=== PATIENT | male | born 2000 | race Two or more races ===

== ENCOUNTER 2019-04-30 17:51 | Emergency (ER) | payer MEDICAID, OTHER ==
[~2019-04-30] VITALS: Ht 177.8 cm; Wt 90.0 kg
[2019-04-30 20:30] VITALS: BP 121/70
== END 2019-04-30 21:46 | disposition home or self-care (01) ==
LOC: ER 17:51
DX: H66.91 Otitis media, unspecified, right ear (principal)
CPT/HCPCS: 99283

== ENCOUNTER 2019-10-28 23:12 | Emergency (ER) | payer MEDICAID ==
[~2019-10-28] VITALS: Ht 175.3 cm; Wt 97.0 kg
[2019-10-29 02:31] VITALS: BP 140/88
== END 2019-10-29 03:42 | disposition left against medical advice (07) ==
LOC: ER 23:12
DX: Z53.21 Procedure and treatment not carried out due to patient leaving prior to being seen by health care provider (principal)

== ENCOUNTER 2019-11-10 20:34 | Emergency (ER) | payer BC, MEDICAID ==
[~2019-11-10] VITALS: Ht 177.8 cm; Wt 104.0 kg
[2019-11-10] MEDS ORDERED: SODIUM CHLORIDE 0.9% 1,000 ML IV ONE (21:14)
[2019-11-10] MEDS ORDERED: ONDANSETRON HCL 4MG/2ML INJ IV STA (21:14)
[2019-11-10] MEDS ORDERED: LORAZEPAM 2MG/ML CPJ IV ONE (21:15)
[2019-11-10] MEDS ORDERED: FAMOTIDINE 20MG/2ML VIAL IV ONE (21:15)
[2019-11-10] MEDS ORDERED: MAGNESIUM/ALUMINUM HYDROXIDE/SIMETHICONE 30ML UDC PO ONE (21:15)
[2019-11-10 21:42] LABS: BASOPHILS % 0.7 % (0.0-2.0); EOSINOPHILS % 0.4 % (0.0-5.0); HEMATOCRIT. 45.6 % (42.0-52.0); HEMOGLOBIN. 15.6 g/dL (14.0-18.0); LYMPHOCYTES % 18.7 % (20.0-50.0); MEAN CORPUSCULAR HEMOGLOBIN 27.2 pg (28.0-32.0); MEAN CORPUSCULAR VOLUME 79.4 fL (80.0-94.0); MEAN PLATELET VOLUME 8.9 fl (7.4-10.4); MONOCYTES % 8.1 % (2.0-8.0); NEUTROPHILS % 72.1 % (40.0-76.0); PLATELET 278 x1000/uL (130-400); RED BLOOD CELL COUNT 5.74 mill/uL (4.7-6.1); RED CELL DISTRIBUTION WIDTH 13.7 % (11.6-14.6)
[2019-11-10 21:43] LABS: CHLORIDE 105 mEq/L (98-107)
[2019-11-10 21:47] LABS: ETHANOL BLOOD < 10 mg/dL
[2019-11-10 22:34] LABS: CLARITY URINE CLEAR (CLEAR); COLOR URINE YELLOW (YELLOW); KETONES URINE 2+ (NEGATIVE); LEUKOCYTE ESTERASE URINE NEGATIVE (NEGATIVE); NITRITE URINE NEGATIVE (NEGATIVE); OCCULT BLOOD URINE 1+ (NEGATIVE); PROTEIN URINE TRACE (NEGATIVE); SPECIFIC GRAVITY URINE 1.021 (1.005-1.030); UROBILINOGEN URINE 0.2 E.U./dL (0.2-1.0)
[2019-11-10 22:44] LABS: *BARBITURATES SCREEN URINE NEGATIVE (NEGATIVE); *BENZODIAZEPINES SCREEN URINE NEGATIVE (NEGATIVE); *COCAINE SCREEN URINE NEGATIVE (NEGATIVE)
[2019-11-10 22:45] LABS: *AMPHETAMINES SCREEN URINE NEGATIVE (NEGATIVE); CANNABINOID URINE SCREEN PRESUMTIVE POSITIVE (NEGATIVE); METHADONE URINE SCREEN NEGATIVE (NEGATIVE); OPIATES URINE SCREEN NEGATIVE (NEGATIVE); PHENCYCLIDINE URINE SCREEN NEGATIVE (NEGATIVE)
[2019-11-11 00:03] VITALS: BP 111/63
== END 2019-11-11 00:04 | disposition home or self-care (01) ==
LOC: ER 20:34
DX: K29.70 Gastritis, unspecified, without bleeding (principal); R11.10 Vomiting, unspecified; E86.0 Dehydration; R74.8 Abnormal levels of other serum enzymes; F12.10 Cannabis abuse, uncomplicated
CPT/HCPCS: 36415; 71045; 80053; 80305; 80320; 81003; 83690; 84484; 85025; 96361; 96374; 96375; 99284; J2060; J2405; J3490; J7030; G0480

== ENCOUNTER 2019-11-13 20:16 | Emergency (ER) | payer BC, MEDICAID ==
[~2019-11-13] VITALS: Ht 172.7 cm; Wt 104.0 kg
[2019-11-13 22:33] VITALS: BP 150/88
== END 2019-11-14 00:37 | disposition left against medical advice (07) ==
LOC: ER 20:16
DX: Z53.21 Procedure and treatment not carried out due to patient leaving prior to being seen by health care provider (principal)

== ENCOUNTER 2019-11-14 02:49 | Emergency (ER) | payer MEDICAID ==
[~2019-11-14] VITALS: Ht 180.3 cm; Wt 104.0 kg
[2019-11-14] MEDS ORDERED: LORAZEPAM 1MG TABLET PO ONE (03:45)
[2019-11-14 04:16] VITALS: BP 130/65
== END 2019-11-14 04:19 | disposition home or self-care (01) ==
LOC: ER 04:18
DX: F16.180 Hallucinogen abuse with hallucinogen-induced anxiety disorder (principal)
CPT/HCPCS: 99283

== ENCOUNTER 2019-11-15 04:17 | Emergency (ER) | payer MEDICAID ==
[~2019-11-15] VITALS: Ht 177.8 cm; Wt 104.0 kg
[2019-11-15 04:51] VITALS: BP 156/93
== END 2019-11-15 06:38 | disposition home or self-care (01) ==
LOC: ER 04:17
DX: F16.180 Hallucinogen abuse with hallucinogen-induced anxiety disorder (principal); R00.2 Palpitations; I10 Essential (primary) hypertension
CPT/HCPCS: 99283

== ENCOUNTER 2019-11-17 05:33 | Emergency (ER) | payer MEDICAID ==
[~2019-11-17] VITALS: Ht 180.3 cm; Wt 100.0 kg
[2019-11-17 06:49] VITALS: BP 138/92
== END 2019-11-17 06:49 | disposition home or self-care (01) ==
LOC: ER 05:33
DX: F41.8 Other specified anxiety disorders (principal); F32.9 Major depressive disorder, single episode, unspecified
CPT/HCPCS: 99283

== ENCOUNTER 2020-11-02 16:47 | Emergency (ER) | payer MEDICAID ==
[~2020-11-02] VITALS: Ht 180.3 cm; Wt 100.0 kg
[2020-11-02] MEDS ORDERED: KETOROLAC 60MG/2ML VIAL IM ONE (17:30)
[2020-11-02] MEDS ORDERED: TRAMADOL 50MG TABLET PO ONE (17:30)
[2020-11-02 18:39] VITALS: BP 143/93
== END 2020-11-02 18:44 | disposition home or self-care (01) ==
LOC: ER 16:50
DX: T24.212A Burn of second degree of left thigh, initial encounter (principal); T31.0 Burns involving less than 10% of body surface; X08.8XXA Exposure to other specified smoke, fire and flames, initial encounter; Y93.89 Activity, other specified; Y92.89 Other specified places as the place of occurrence of the external cause; Y99.8 Other external cause status; Z98.890 Other specified postprocedural states
CPT/HCPCS: 16020; 96372; 99284; J1885

== ENCOUNTER 2025-02-08 18:37 | Emergency (ER) | payer OTHER ==
[~2025-02-08] VITALS: Ht 177.8 cm; Wt 127.0 kg
[~2025-02-08 18:37] MED LIST: ACET-2708 MT; NAPR-1129 MT
[2025-02-08 18:46] VITALS: O2SAT 98
[2025-02-08 18:49] VITALS: BP 150/95; PULSE 98; RESP 16; TEMP 36.6; O2SAT 100
[2025-02-08 19:34] LABS: BASOPHILS % 0.7 % (0.0-2.0); EOSINOPHILS % 2.1 % (0.0-5.0); HEMATOCRIT. 45.1 % (42.0-52.0); HEMOGLOBIN. 14.9 g/dL (14.0-18.0); LYMPHOCYTES % 25.7 % (20.0-50.0); MEAN CORPUSCULAR HEMOGLOBIN 26.7 pg (28.0-32.0); MEAN CORPUSCULAR VOLUME 80.8 fL (80.0-94.0); MEAN PLATELET VOLUME 9.3 fl (7.4-10.4); MONOCYTES % 8.4 % (2.0-8.0); NEUTROPHILS % 63.1 % (40.0-76.0); PLATELET 280 x1000/uL (130-400); RED BLOOD CELL COUNT 5.59 mill/uL (4.7-6.1); RED CELL DISTRIBUTION WIDTH 14.1 % (11.6-14.6)
[2025-02-08 19:41] LABS: CHLORIDE 104 mEq/L (98-107); POTASSIUM 3.6 mEq/L (3.5-5.1); SODIUM 139 mEq/L (136-145)
[2025-02-08 19:42] LABS: CARBON DIOXIDE 27 mEq/L (21-32)
[2025-02-08 19:47] LABS: CREATININE 1.3 mg/dL (0.6-1.3); GLUCOSE 115 mg/dL (70-105); UREA NITROGEN BLOOD 16 mg/dL (9-23)
[2025-02-08 19:49] LABS: TROPONIN I HIGH SENSITIVITY < 4 ng/L (3.0-53)
== END 2025-02-08 20:38 | disposition home or self-care (01) ==
LOC: ER 18:37
DX: R07.89 Other chest pain (principal); I10 Essential (primary) hypertension; F41.9 Anxiety disorder, unspecified; F19.90 Other psychoactive substance use, unspecified, uncomplicated; Z98.890 Other specified postprocedural states
CPT/HCPCS: 36415; 71045; 80048; 84484; 85025; 93005; 99285